=== PATIENT | female | born 1980 | race Native Hawaiian/Other Pacific Islander ===

== ENCOUNTER 2020-05-09 16:35 | Emergency (ER) | payer OTHER ==
[~2020-05-09] VITALS: Ht 157.5 cm; Wt 63.5 kg
[~2020-05-09 16:35] MED LIST: ADIPEX PO; ADIPEX-P37.5 M1 OR; HYDR25TA60 PO
[2020-05-09 18:30] VITALS: BP 96/59; TEMP 97.6
== END 2020-05-09 18:30 | disposition home or self-care (01) ==
LOC: ED 16:35
PROC: 0H9JXZZ Drainage of Left Upper Leg Skin, External Approach (ICD-10-PCS; principal; 2020-05-09)
DX: L02.416 Cutaneous abscess of left lower limb (principal)
CPT/HCPCS: 87070; 87205; 99282